=== PATIENT | female | born 1950 | race Caucasian/White ===

== ENCOUNTER 2023-02-28 13:51 | Outpatient (AMB) | payer MEDICARE, SELFPAY ==
--- NOTE | 2023-02-28 14:10 | MHC.OFFVIS ---
Intake Vital Signs 02/28/23 14:23 Weight 154 lb BP 118/70 Blood Pressure Location Lt brachial Position Sitting Intake Visit Reasons: Pruritus ani Intake Note: This patient presents for an assessment for hemorrhoids. Patient c/o; Onset 1970, Hx hemorrhoidectomy 1974, occasional rectal bleeding, itching, occasional burning sensation. [employer] Required: No Accompanied by: Self / Same As Patient Allergies No Known Allergies Allergy (Verified 02/28/23 14:18) Medication List - Last Reconciled 03/02/23 by Manoj Huber MD betamethasone dipropionate 0.05% (Sernivo) topical BID PRN ciclopirox 1% topical clobetasol 0.05% topical menthol-zinc oxide 0.44-20.6 % (Calmoseptine) 1 appl topical QID PRN triamcinolone acetonide 0.1% appl topical triamcinolone acetonide 0.025% topical HPI Pruritus ani HPI Details 72-year-old female referred for hemorrhoid issues. She actually describes mostly itching around her perianal area. She says that she has had hemorrhoids for many years. She states he had done well for many years. For the past couple of years however, she says she would notice occasional small amounts of blood on wiping. She says she also had periodic itching and burning sensation under anus. She states she feels a lump that she thinks are her external hemorrhoids. She denies severe constipation. [facility] Medical History (Updated 03/02/23 @ 14:56 by Manoj Huber MD) Pruritus ani Surgical History History of hemorrhoidectomy History of breast biopsy Social History (Updated 02/28/23 @ 14:21 by BAUTISTA Law) Alcohol intake: current Alcohol type: wine Patient Tobacco Use Status: Never used Tobacco Review of Systems Const Denies chills and Denies fever(s) Card Denies chest pain, Denies dyspnea and Denies dyspnea on exertion Resp Denies cough, Denies dyspnea and Denies dyspnea on exertion GI Reports hematochezia and Denies change in bowel habits Denies hematuria Musc Denies back pain and Denies limited range of motion Neuro Denies focal weakness and Denies convulsions Psych Denies depression and Denies mood swings Physical Exam Vital Signs: Last Vital Signs BP 118/70 02/28/23 14:23 Const General: comfortable and no acute distress Orientation/consciousness: patient oriented x3 Neck Neck: Yes no lymphadenopathy Resp Auscultation: clear to auscultation bilaterally Cardio Rhythm: regular rhythm GI Other: Small external hemorrhoids, no perianal lesions Palpation (GI): Soft to palpation, nontender and no guarding Neuro General: patient oriented x3 Office Procedures Anoscopy She was in jose juan-knife position. The anoscope was gently inserted. A full examination of the entire anal canal was done. She did have small hemorrhoidal columns, mix of internal external, on both the left and the right side. There were no other lesions. There was no fissure or induration. There was no bleeding [id number] Assessment & Plan Assessment & Plan (1) Pruritus ani: Code(s): L29.0 - Pruritus ani Plan: She does have non bulky hemorrhoids, internal external. Her main complaint is burning and itching around her anal area. I told her that we can start with Calmoseptine for relief of her symptoms. I explained to her the option of hemorrhoidectomy and I told her about the risks, benefits, alternatives. She she can try applying Calmoseptine for now for relief of her perianal itching. I can see her in the office on a p.r.n. basis. Medications: New menthol-zinc oxide 0.44-20.6 % (Calmoseptine) 1 appl topical QID PRN 113 grams 0RF anal itching Coding Level of Care Code New Pt Level 3 (23120) Diagnoses Pruritus ani L29.0 CPT Codes Details - CPT: 37497-[id number] ([id number])
[2023-02-28 14:23] VITALS: BP 118/70
== END 2023-02-28 14:39 | disposition home or self-care (01) ==
PROVIDERS: PCP Family Medicine; Referring Provider Family Medicine; Visit Provider Surgery
DX: L29.0 Pruritus ani (principal); K64.8 Other hemorrhoids
CPT/HCPCS: 46600; 99203

== ENCOUNTER → 2023-02-28 13:51 | Outpatient (BNVA) | payer MEDICARE, SELFPAY | PROVIDERS: PCP Family Medicine; Referring Provider Family Medicine; Visit Provider Surgery | DX: L29.0 Pruritus ani (principal) | CPT/HCPCS: 46600 ==